=== PATIENT | male | born 1980 | race Caucasian/White ===

== ENCOUNTER → 2016-11-12 | Outpatient (CLI) | payer OTHER | LOC: EMI 11:00 | DX: M25.562 Pain in left knee (principal); M17.12 Unilateral primary osteoarthritis, left knee; M94.262 Chondromalacia, left knee; Z98.890 Other specified postprocedural states | CPT/HCPCS: 73721 ==

== ENCOUNTER → 2016-11-27 | Outpatient (CLI) | payer OTHER ==
[2016-11-27 13:23] LABS: HEMOGLOBIN 19.5 gm/dl (14.0-17.5); RED BLOOD COUNT 5.25 M/UL (4.20-5.50); WHITE BLOOD COUNT 13.2 K/UL (4.5-11.0)
[2016-11-27 13:31] LABS: BUN/CREATININE RATIO 14 (0-10)
== END ==
LOC: LAB 11:54
PROVIDERS: Neurological Surgery
DX: Z51.81 Encounter for therapeutic drug level monitoring (principal); Z79.01 Long term (current) use of anticoagulants; Z79.899 Other long term (current) drug therapy; R05 Cough
CPT/HCPCS: 36415; 71020; 80048; 85027; 85610; 85730; 93005

== ENCOUNTER → 2016-12-26 | Outpatient (CLI) | payer OTHER | LOC: KOH-I 12-20 14:30 | DX: M54.16 Radiculopathy, lumbar region (principal); S32.039D Unspecified fracture of third lumbar vertebra, subsequent encounter for fracture with routine healing; S32.008D Other fracture of unspecified lumbar vertebra, subsequent encounter for fracture with routine healing; M80.88XD Other osteoporosis with current pathological fracture, vertebra(e), subsequent encounter for fracture with routine healing; M54.5 Low back pain; M89.8X8 Other specified disorders of bone, other site | CPT/HCPCS: 72148 ==